=== PATIENT | female | born 1990 | race American Indian/Alaskan Native ===

== ENCOUNTER 2018-11-12 13:03 | Emergency (ER) | payer OTHER ==
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
[2018-11-12 13:37] VITALS: BP 132/80
--- NOTE | 2018-11-12 14:16 | XRay Report ---
CERVICAL SPINE, 3 views: History: Neck pain. AP and lateral views of the cervical spine were obtained. There is anatomic alignment, and the disc spaces are well maintained. There is no evidence of fracture or subluxation. There is loss of the normal cervical lordotic curve suggestive of muscle spasm. The prevertebral soft tissues are within normal limits. IMPRESSION: Loss of cervical lordosis suggesting muscle spasm vs. variation in patient positioning. Clinical correlation is advised. Otherwise negative cervical spine.
--- NOTE | 2018-11-12 14:16 | XRay Report ---
ROUTINE CHEST, TWO VIEWS: HISTORY: Pain. The trachea, heart, mediastinal contour, lung rodriguez and bony thorax are unremarkable. Left lateral ribs are cut off the [id number]. IMPRESSION: Unremarkable chest x-ray.
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
== END 2018-11-12 14:54 | disposition home or self-care (01) ==
LOC: ED 13:03
DX: S16.1XXA Strain of muscle, fascia and tendon at neck level, initial encounter (principal); S39.012A Strain of muscle, fascia and tendon of lower back, initial encounter; S29.9XXA Unspecified injury of thorax, initial encounter; V49.49XA Driver injured in collision with other motor vehicles in traffic accident, initial encounter; Y93.89 Activity, other specified; Y92.488 Other paved roadways as the place of occurrence of the external cause; Y99.8 Other external cause status
CPT/HCPCS: 71046; 72040